=== PATIENT | female | born 1960 | race Caucasian/White ===

== ENCOUNTER → 2019-09-12 | Day surgery (SDC) | payer BC ==
[~2019-09-12] MED LIST: METHYLPREDNISOLONE ACETATE INJ 80 MG/1 ML VIAL ONE
--- NOTE | 2019-09-12 15:52 | RADIOLOGY REPORT (SQ) ---
EXAM DESCRIPTION: INJECT/ASPIR HIP/SHLDR/KNEE; FLUORO/NEEDLE PLACEMENT IMAGES COMPLETED DATE/TIME: 09/12/2019 3:39 pm REASON FOR STUDY: LEFT HIP PAIN COMPARISON: None. FLUOROSCOPY TIME: 10 seconds of fluoroscopy was used. 1 images saved to PACS. LIMITATIONS: None. PROCEDURE: SITE OF INJECTION: The left hip LOCALIZING CONTRAST TYPE AND DOSE: 1 mL Omnipaque 300 MEDICATION TYPE AND DOSE: 80 mg Depo-Medrol and 4 mL Sensorcaine Using local anesthesia and sterile technique with fluoroscopic guidance, the needle was advanced into the joint. Iodinated contrast was injected to verify intraarticular placement. This was followed by therapeutic injection of the indicated medications. The needle was removed. There were no immediat e complications. Preprocedure pain level: 4/10. Postprocedure pain level: 0/10. IMPRESSION: THERAPEUTIC INJECTION OF THE LEFT HIP JOINT ABOVE. COMMENT: Patient medication list reviewed: Yes- Quality ID# [id number]:Eligible professional attests to doc umenting in the medical record they obtained, updated, or reviewed the patient's current medications. . Quality ID 145: Final reports for procedures using fluoroscopy that document radiation exposure saulo sukhdev, or exposure time and number of fluorographic images (if radiation exposure indices are not avail able) TECHNICAL DOCUMENTATION: JOB ID: [id number] 2010 [employer]- All Rights Reserved Reading location - IP/workstation name: [email or web address]
--- NOTE | 2019-09-12 15:52 | RADIOLOGY REPORT (SQ) ---
EXAM DESCRIPTION: INJECT/ASPIR HIP/SHLDR/KNEE; FLUORO/NEEDLE PLACEMENT IMAGES COMPLETED DATE/TIME: 09/12/2019 3:39 pm REASON FOR STUDY: LEFT HIP PAIN COMPARISON: None. FLUOROSCOPY TIME: 10 seconds of fluoroscopy was used. 1 images saved to PACS. LIMITATIONS: None. PROCEDURE: SITE OF INJECTION: The left hip LOCALIZING CONTRAST TYPE AND DOSE: 1 mL Omnipaque 300 MEDICATION TYPE AND DOSE: 80 mg Depo-Medrol and 4 mL Sensorcaine Using local anesthesia and sterile technique with fluoroscopic guidance, the needle was advanced into the joint. Iodinated contrast was injected to verify intraarticular placement. This was followed by therapeutic injection of the indicated medications. The needle was removed. There were no immediat e complications. Preprocedure pain level: 4/10. Postprocedure pain level: 0/10. IMPRESSION: THERAPEUTIC INJECTION OF THE LEFT HIP JOINT ABOVE. COMMENT: Patient medication list reviewed: Yes- Quality ID# [id number]:Eligible professional attests to doc umenting in the medical record they obtained, updated, or reviewed the patient's current medications. . Quality ID 145: Final reports for procedures using fluoroscopy that document radiation exposure saulo sukhdev, or exposure time and number of fluorographic images (if radiation exposure indices are not avail able) TECHNICAL DOCUMENTATION: JOB ID: [id number] 2010 [employer]- All Rights Reserved Reading location - IP/workstation name: [email or web address]
== END ==
LOC: RAD 14:49 → EDSTATUS 15:30
PROVIDERS: ATTEND Orthopaedic Surgery
DX: M25.552 Pain in left hip (principal)
CPT/HCPCS: 20610; 77002; J1040

== ENCOUNTER → 2019-10-20 | Outpatient (CLI) | payer BC ==
--- NOTE | 2019-10-22 13:09 | RADIOLOGY REPORT (SQ) ---
EXAM DESCRIPTION: MRI LUMBAR SPINE WITHOUT IMAGES COMPLETED DATE/TIME: 10/20/2019 7:38 pm REASON FOR STUDY: M54.2 CERVICALGIA M54.2 CERVICALGIA COMPARISON: None. TECHNIQUE: Sagittal and Axial imaging includes T1, T2, STIR and gradient echo sequences. Coronal T2/ HASTE imaging. LIMITATIONS: None. FINDINGS: VISUALIZED UPPER ABDOMEN: Left renal cyst SEGMENTATION: No transitional anatomy. The lowest well-developed disc space is labeled L5-S1. ALIGNMENT: Scoliosis convex left. VERTEBRAE: Intact. BONE MARROW: Multilevel reactive endplate changes. DISC SIGNAL: Generalized loss of height and T2 signal most marked L3-4. POSTERIOR ELEMENTS: Generally intact. No pars defect evident. HARDWARE: None in the spine. CORD AND CONUS: Normal in size and signal intensity. Conus at the appropriate level. SOFT TISSUES: No aortic aneurysm seen. No bulky retroperitoneal adenopathy or mass. No paraspinal mas s or fluid. L1-L2: No significant spinal stenosis or exit foraminal stenosis. L2-L3: Broad-based disc bulge. Facet hypertrophy. Mild central canal stenosis. L3-L4: Generalized disc osteophyte complex. Posterior element overgrowth. Moderate narrowing of the exit foramina left greater than right and central canal stenosis. . L4-L5: Disc osteophyte complex. Mild posterior element overgrowth. Mild narrowing of the exit jorje kalin and central canal stenosis L5-S1: Disc osteophyte complex asymmetric left. Moderate narrowing of left exit foramina and crispin danielle of the exiting left L5 root. Mild narrowing of the right exit foramina. LOWER THORACIC: Incompletely imaged. No stenosis seen. SACRUM: Visualized upper sacrum intact. OTHER: No other significant findings. IMPRESSION: Multilevel milder moderate spondylosis without a dominant level. There is compression o f the exiting left L5 root L5-S1 on the left. TECHNICAL DOCUMENTATION: JOB ID: [id number] 2010 [employer]- All Rights Reserved Reading location - IP/workstation name: [email or web address]
== END ==
LOC: RAD 18:39
PROVIDERS: ATTEND Orthopaedic Surgery
DX: M54.2 Cervicalgia (principal)
CPT/HCPCS: 72148